=== PATIENT | female | born 1985 | race Hispanic/Latino ===

== ENCOUNTER 2017-01-07 10:20 | Outpatient (CLI) | payer BC ==
[2017-01-07 10:44] VITALS: BP 128/71
[2017-01-07] MEDS ORDERED: PERCOCET 5/325 PO PRN (12:00)
[2017-01-07] MEDS ORDERED: LACTATED RINGERS 1,000 ML IV SCH (13:00)
== END 2017-01-07 12:27 | disposition home or self-care (01) ==
LOC: TRG 10:20
PROVIDERS: ATTEND Obstetrics & Gynecology
DX: O47.1 False labor at or after 37 completed weeks of gestation (principal); Z3A.39 39 weeks gestation of pregnancy
CPT/HCPCS: 59025; 96360

== ENCOUNTER 2017-01-14 09:25 | Inpatient (IN) | payer BC ==
--- NOTE | 2017-01-14 07:42 | History and Physical Report ---
History of Present Illness Date of examination: 01/14/17 History of present illness: Menstrual History Regularity: regular Menses every: 28 days Duration: 5 LMP: 04/16/2016 LMP reliability: month known LMP character: normal test type: urine test Date: 06/02/2016 BC at conception: none Planned ? 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 Infection History Varicella/Chicken Pox Status: Immunized Genetic History Congenital Heart Defect: Mom: no Dad: no Bryan Disease: Mom: no Dad: no Thalassemia Mom: no Dad: no Neural Tube Defect Mom: no Dad: no Down's Syndrome Mom: no Dad: no Terry-Sachs Mom: no Dad: no Sickle Cell Disease/Trait Mom: no Dad: no Hemophilia Mom: no Dad: no Muscular Dystrophy Mom: no Dad: no Cystic Fibrosis Mom: no Dad: no [place] Chorea Mom: no Dad: no Mental Retardation Mom: no Dad: no Fragile X Mom: no Dad: no Other Genetic/Chromosomal Disorder Mom: no Dad: no Child w/other defect Mom: no Dad: no Enviromental Exposures Xray Exposure: no Medication, drug, or alcohol use since LMP: no Chemical/Other Exposure: no Exposure to Cat Liter: no Hx of Parvovirus (Fifth Disease): no Occupational Exposure to Children: none Current Allergies: No known allergies Past History Past Surgical History: section, other (See HPI) 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 (See HPI) Family/Genetic History: other (See HPI) Social history: other (See HPI) - Obstetrical History Expected Date of Delivery: 01/21/17 Actual Gestation: 39 Week(s) 0 Day(s) : 2 Para: 1 Hx # Term Pregnancies: 1 Number of Pregnancies: 0 Spontaneous Abortions: 0 Induced : 0 Number of Living Children: 1 Medications and Allergies Allergies Allergy/AdvReac Type Severity Reaction Status Date / Time No Known Allergies Allergy Unverified 01/07/17 10:52 Active Meds: Active Medications Citric Acid/Sodium Citrate (Bicitra) 30 ml PO ONCE ONE Stop: 01/14/17 07:32 Famotidine (Pepcid) 20 mg IV ONCE ONE Stop: 01/14/17 07:32 Cefazolin Sodium (Ancef/Sterile Water 2 Gm/20 Ml) 2 gm in 20 mls @ 80 mls/hr IV PREOP NR PRN Reason: Protocol Lactated Ringer's (Lactated Ringers) 1,000 mls @ 2,250 mls/hr IV PREOP ILDA Stop: 01/15/17 08:27 Oxytocin/Sodium Chloride (Pitocin/Ns 20 Unit/1000ml Drip) 20 units in 1,000 mls @ 0 mls/hr IV TITR ILDA PRN Reason: As Directed Metoclopramide HCl (Reglan) 10 mg IV ONCE ONE Stop: 01/14/17 07:32 - Physical Exam Breasts: Positive: deferred Cardiovascular: Regular rate Lungs: Positive: Normal air movement Abdomen: Positive: normal appearance, soft, normal bowel sounds Genitourinary (Female): Positive: normal external genitalia Vagina: Positive: normal moisture Uterus: Positive: enlarged - Obstetrical FHR: category 1 Results Result Diagrams: 01/14/17 10:45 All other labs normal. Assessment and Plan - Patient Problems (1) with 39 completed weeks gestation Current Visit: Yes Status: Acute (2) Previous section Current Visit: No Status: Acute Plan to address problem: Discuss the risks of the surgery including infection, bleeding possibly heavy enough to require a blood transfusion, possible damage to bowel, bladder or ureter. Her questions were answered. Patient understands and desires to proceed
[~2017-01-14 09:25] MED LIST: BICITRA PO ONE; PITOCin/NS 20 UNIT/1000ML DRIP 20 UNITS/1,000 ML BAG IV SCH
[2017-01-14] MEDS ORDERED: LACTATED RINGERS 1,000 ML IV SCH (10:00)
[2017-01-14] MEDS ORDERED: PEPCID IV ONE ×2 (10:00→13:47)
[2017-01-14] MEDS ORDERED: ANCEF/STERILE WATER 2 GM/20 ML 2 GM/20 ML SYRINGE IV NR (10:00)
[2017-01-14] MEDS ORDERED: REGLAN IV ONE (10:00)
--- NOTE | 2017-01-14 10:35 | Anesthesia Day of Surgery ---
Anesthesia Day of Surgery - Day of Surgery Patient Examined: Yes Patient H&P Reviewed: Yes Patient is NPO: Yes
--- NOTE | 2017-01-14 10:35 | Anesthesia Consultation ---
Anesthesia Consult and Med Hx Date of service: 01/14/17 - Airway Anesthetic Teeth Evaluation: Good ROM Head & Neck: Adequate Mental/Hyoid Distance: Adequate Mallampati Class: Class I Intubation Access Assessment: Good - Pulmonary Exam CTA: Yes - Cardiac Exam Cardiac Exam: RRR - Pre-Operative Health Status ASA Pre-Surgery Classification: ASA2 Proposed Anesthetic Plan: Spinal - Pulmonary Hx Asthma: No - Cardiovascular System Hx Hypertension: No - Central Nervous System Hx Seizures: No Hx Psychiatric Problems: Yes - Endocrine Hx Renal Disease: No Hx Hypothyroidism: No Hx Hyperthyroidism: No - Hematic Hx Anemia: No Hx Sickle Cell Disease: No - Other Systems Hx Alcohol Use: No - Additional Comments Anesthesia Medical History Comments: NAC previously.
[2017-01-14 11:22] LABS: Basophils % (Auto) 0.2 % (0.0-1.8); Eosinophils % (Auto) 1.3 % (0.0-4.3); Hematocrit 30.7 % (30.3-42.9); Hemoglobin 10.4 gm/dl (10.1-14.3); Mean Corpuscular HGB Conc 34 % (30-34); Mean Corpuscular Hemoglobin 27 pg (28-32); Mean Corpuscular Volume 81 fl (79-97); Platelet Count 215 K/mm3 (140-440); Red Blood Count 3.81 M/mm3 (3.65-5.03); Red Cell Distribution Width 14.2 % (13.2-15.2); White Blood Count 6.9 K/mm3 (4.5-11.0)
[2017-01-14] MEDS ORDERED: NARCAN 0.4 MG/1 ML IV PRN ×2 (13:02→17:39)
[2017-01-14] MEDS ORDERED: ZOFRAN IV PRN (13:02)
[2017-01-14] MEDS ORDERED: MORPHINE IV PRN ×2 (13:02)
[2017-01-14] MEDS ORDERED: BENADRYL IV PRN (13:02)
[2017-01-14] MEDS ORDERED: REGLAN ONE (13:48)
[2017-01-14] MEDS ORDERED: BICITRA ONE (13:49)
[2017-01-14] MEDS ORDERED: SODIUM CHLORIDE FLUSH SYRINGE 10 ML IV NR (14:00)
[2017-01-14] MEDS ORDERED: WATER FOR IRRIG STERILE IR ONE (14:00)
[2017-01-14] MEDS ORDERED: NACL 0.9% IR ONE (14:00)
[2017-01-14] MEDS ORDERED: SUBLIMAZE ONE (14:14)
[2017-01-14] MEDS ORDERED: ZOFRAN ONE (14:30)
[2017-01-14] MEDS ORDERED: ROBINUL ONE (14:38)
--- NOTE | 2017-01-14 15:33 | Operative Report ---
Operative Report Operative Report: Date of procedure: 01/14/2017 Pre-operative diagnosis: Intrauterine at 39 weeks with previous section Post-operative diagnosis: Same Procedure name(s): Repeat low transverse section Surgeon: Davy Pena MD Lay Out Drafter: Jocelyne Page, american board certified orthotist Anesthesia: Spinal EBL: 500 mL Complications: None Findings: Normal uterus with bilateral normal tubes and ovaries male weighing 7 lbs. 15 oz. Apgars 7 at 1 minute and 8 at 5 minutes Specimen(s): None Procedure: The patient was brought to the operating room. A spinal was placed without any complications. She was then placed in left lateral tilt. Prepped and draped in the usual sterile manner. After testing for adequate anesthesia level, a Pfannenstiel incision was made through her previous scar. This incision was taken down to the fascia. The fascia was then nicked in the midline. This incision was extended out laterally with Waite scissors. The fascia was then sharply and bluntly from the underlying rectus muscles. The rectus muscles were bluntly and sharply . The peritoneum was then entered with the injection molding machine operator's fingers. This incision was spread vertically with care not to damage the bladder below. The bladder flap was then formed sharply and bluntly with Metzenbaum scissors.. Bladder blade placed. A transverse incision was made in lower uterine segment. This incision was extended laterally with the operators fingers. The amniotic sac was then entered bluntly with the injection molding machine operator's fingers. The infant was delivered from the vertex position with assistance of a vacuum. Bulb suction on the mother's abdomen. Cord was double clamped and cut. The was then passed to the nursery personnel who were in attendance. The above scores were given by the nursery personnel. The placenta was then bluntly removed. The uterus was then externalized and wiped clean the remaining products. The uterine incision was closed in layers. The first incision was closed in a locking manner using 0 Vicryl. This was followed by imbricating stitch also with 0 Vicryl. This closure was hemostatic after additional [id number] stitch. The bladder flap was copiously irrigated and found to be hemostatic. The pelvis was copiously irrigated and found to be hemostatic. The uterus was then placed back to the patient's abdomen. The retractors were removed. The rectus muscles were inspected and found to be hemostatic. The fascia was then closed in a running manner using 0 Vicryl. This incision was hemostatic irrigation Bovie. The skin was reapproximated with 4-0 Vicryl subcuticularly. The patient tolerated procedure well. Her urine was clear. The infant was admitted to the well baby nursery. The patient was accompanied to recovery room in good condition. Instrument count correct 3
[2017-01-14] MEDS ORDERED: ePHEDrine SULFATE ONE (15:47)
[2017-01-14] MEDS ORDERED: DEMEROL IV PRN (16:00)
--- NOTE | 2017-01-14 16:45 | Post Anesthesia Evaluation ---
- Post Anesthesia Evaluation Patient Participated: Yes Airway Patent: Yes Stable Respiratory Function: Yes Nausea/Vomiting: No Temp > 96.8F: Yes Pain Manageable: Yes Adequeate Hydration: Yes Anesthesia Complications: No Block Receding Appropriately: Yes Patient on Ventilator: No
[2017-01-14] MEDS ORDERED: D5LR 1,000 ML IV SCH (17:39)
[2017-01-14] MEDS ORDERED: PITOCin/NS 20 UNIT/1000ML DRIP 20 UNITS/1,000 ML BAG IV SCH (17:39)
[2017-01-14] MEDS ORDERED: LANSINOH TP PRN (17:39)
[2017-01-14] MEDS ORDERED: TUCKS PAD TP PRN (17:39)
[2017-01-14] MEDS: TORADOL IV PRN (18:02)
[2017-01-14] MEDS: NORCO 5/325 PO PRN (20:29)
[2017-01-14] MEDS: ANCEF/NS 1 GM/50 ML 1 GM/50 ML BAG IV SCH (20:44)
[2017-01-15] MEDS: TORADOL IV PRN ×2 (00:28→05:20)
[2017-01-15] MEDS: NORCO 5/325 PO PRN ×6 (00:28→20:39)
[2017-01-15] MEDS: ANCEF/NS 1 GM/50 ML 1 GM/50 ML BAG IV SCH (04:27)
[2017-01-15 06:22] LABS: Hematocrit 28.3 % (30.3-42.9); Hemoglobin 9.5 gm/dl (10.1-14.3)
--- NOTE | 2017-01-15 08:28 | Progress Note ---
Assessment and Plan Pt OOB to NICU to visit NB VSS FF below umb Lochia small Dressing D&I, to be removed today. H&H pending Doing well s/p c/s P: continue pathway Advance diet and activity as tolerated. Subjective - Subjective Date of service: 01/15/17 (Pt OOB to NICU) Patient reports: appetite normal, voiding normally, pain well controlled, ambulating normally : in NICU (stable) Objective - Vital Signs Latest vital signs: Vital Signs Temp Pulse Resp BP BP Pulse Ox 01/15/17 06:17 18 01/15/17 05:50 18 01/15/17 05:19 18 01/15/17 04:45 97.8 F 88 22 106/64 01/15/17 00:48 98 F 81 18 103/66 01/15/17 00:28 18 01/14/17 21:29 18 01/14/17 20:30 98.3 F 82 20 106/65 01/14/17 20:29 18 01/14/17 17:20 98.4 F 97 H 18 105/59 100 01/14/17 15:36 97.6 F 102 H 20 95/58 01/14/17 11:18 98.0 F 106 H 16 118/72 01/14/17 10:23 106 H 118/72 Intake and Output 01/14/17 01/15/17 01/15/17 22:59 06:59 14:59 Intake Total 650 120 Output Total 900 1250 Balance -250 -1130 Intake: IV 650 ANCEF/NS 1 GM/50 ML 1 gm 50 In 50 ml @ 100 mls/hr IV Q8H [facility] Rx#:[id number] Intake, Free Water 120 Output: Urine 900 1250 Indwelling Catheter 150 Uretheral (Saleh) 500 700 Void 400 Other: Total, Output Amount 400 Weight 210 lb Estimated Blood Loss 500 - Labs Labs: Abnormal lab results 01/14/17 01/15/17 Range/Units 10:45 06:00 Hgb 9.5 L (10.1-14.3) gm/dl Hct 28.3 L (30.3-42.9) % MCH 27 L (28-32) pg Wilcox % (Auto) 13.9 H (0.0-7.3) % Wilcox # 1.0 H (0.0-0.8) K/mm3
[2017-01-15] MEDS: FEOSOL PO SCH (10:13)
[2017-01-15] MEDS: PRENATAL VITAMIN PO SCH (10:13)
[2017-01-15] MEDS ORDERED: MYLICON PO PRN (21:13)
[2017-01-15] MEDS: COLACE PO SCH (22:03)
[2017-01-16] MEDS: MOTRIN PO PRN ×2 (00:23→08:52)
[2017-01-16] MEDS: NORCO 5/325 PO PRN ×4 (00:23→10:44)
--- NOTE | 2017-01-16 06:23 | Discharge Summary ---
Providers - Providers Date of Admission: 01/14/17 09:25 Date of discharge: 01/16/17 (pt request d/c today) Attending physician: DANAY WINTERS 01/14/17 17:39 Consult to Underwriting Intern [CONS] Routine Reason For Exam: Primary care physician: DANAY WINTERS Hospitalization Reason for admission: section Delivery: Procedure: repeat low transverse Episiotomy: none Laceration: none Incision: normal, dry, intact Other procedures: none complications: none Discharge diagnosis: IUP at term delivered baby: male Hospital course: uncomplicated repeat section Pt w/o complaint VSS FF below umb Lochia small Incision D&I Asymptomatic anemia Doing well s/p section. P: d/c today with instructions RTO 1 week for c /s and son's circ. Take meds as RXed Condition at discharge: Good Disposition: DC-01 TO HOME OR SELFCARE - Discharge Diagnoses (1) delivery delivered Status: Acute Comment: rto 1 week postop care Plan - Discharge Medications Prescriptions: Docusate Sodium [Colace] 100 mg PO BID PRN #60 capsule PRN Reason: Constipation Ferrous Sulfate [Feosol 325 MG tab] 325 mg PO BID #60 tablet Ibuprofen [Motrin 800 MG tab] 800 mg PO Q6H PRN #30 tablet PRN Reason: Pain oxyCODONE /ACETAMINOPHEN [Percocet 5/325 mg] 1 - 2 tab PO Q4H PRN #30 tablet PRN Reason: Pain, Moderate - Provider Discharge Summary Activity: routine, no sex for 6 weeks, no heavy lifting 4 weeks, no strenuous exercise Diet: routine Instructions: routine Additional instructions: [] Smoking cessation referral if applicable(refer to patient education folder for contact #) [] Refer to [facility] Booklet Call your doctor immediately for: * Fever > 100.5 * Heavy vaginal bleeding ( >1 pad per hour) * Severe persistent headache * Shortness of breath * Reddened, hot, painful area to leg or breast * Drainage or odor from incision. * Keep incision clean and dry at all times and follow doctor's instructions regarding bathing/showering - Follow up plan Follow up: DANAY WINTERS MD [Primary Care Provider] - 7 Days (Congratulations! Please call [phone] to schedule your postoperative visit and your son's circumcision. Bring the EMLA cream with you to his visit. Take medications as prescribed. Call with concerns.)
[2017-01-16] MEDS: COLACE PO SCH (10:44)
[2017-01-16] MEDS: FEOSOL PO SCH (10:44)
[2017-01-16] MEDS: PRENATAL VITAMIN PO SCH (10:44)
[2017-01-16 11:15] VITALS: BP 122/72
== END 2017-01-16 13:45 | disposition home or self-care (01) | DRG 765 ==
LOC: APU 09:25 → OB 17:26
PROVIDERS: ADMIT Obstetrics & Gynecology; ATTEND Obstetrics & Gynecology
PROC: 10D00Z1 Extraction of Products of Conception, Low, Open Approach (ICD-10-PCS; principal; 2017-01-14)
DX: O34.211 Maternal care for low transverse scar from previous cesarean delivery (principal); R71.0 Precipitous drop in hematocrit; Z37.0 Single live birth; Z3A.39 39 weeks gestation of pregnancy; O90.81 Anemia of the puerperium
CPT/HCPCS: 36415; 85014; 85018; 85025; 86850; 86900; 86901; 99211; A6250; C1765; G0463; J0690; J1885; J2405; J2590; J2765; J3010; J7120; J7121